=== PATIENT | female | born 1980 | race African-American/Black ===

== ENCOUNTER 2023-07-31 08:57 | Emergency (ER) | payer OTHER ==
[~2023-07-31] VITALS: Ht 165.1 cm; Wt 127.0 kg
[2023-07-31 09:12] VITALS: BP 171/97; RESP 16; TEMP 98.3; O2SAT 98
[2023-07-31 09:15] VITALS: PULSE 89
== END 2023-07-31 11:18 | disposition home or self-care (01) ==
LOC: ER 08:57
DX: B34.9 Viral infection, unspecified (principal); I10 Essential (primary) hypertension; Z86.59 Personal history of other mental and behavioral disorders
CPT/HCPCS: 71045; 99283

== ENCOUNTER 2024-10-17 17:53 | Emergency (ER) | payer OTHER ==
[~2024-10-17] VITALS: Ht 165.1 cm; Wt 137.0 kg
[2024-10-17 17:58] VITALS: TEMP 36.7; O2SAT 100
[2024-10-17 19:10] VITALS: BP 165/86; PULSE 83; RESP 14
[2024-10-17] MEDS: BACITRACIN ZINC OINT UDPKT TOP ONE (19:10)
[2024-10-17] MEDS: KETOROLAC 30MG/ML VIAL IV ONE (19:10)
[2024-10-17] MEDS: LIDOCAINE HCL/PF 1% 10 MG/ML 5ML VIAL INFIL ONE (19:10)
== END 2024-10-17 20:19 | disposition home or self-care (01) ==
LOC: ER 17:53
DX: S01.312A Laceration without foreign body of left ear, initial encounter (principal); G43.809 Other migraine, not intractable, without status migrainosus; X58.XXXA Exposure to other specified factors, initial encounter; Y93.89 Activity, other specified; Y92.89 Other specified places as the place of occurrence of the external cause; Y99.8 Other external cause status
CPT/HCPCS: 12011; 96374; 99283; J1885; J2003; Z7610 ×2

== ENCOUNTER 2024-10-23 15:19 | Emergency (ER) | payer OTHER ==
[~2024-10-23] VITALS: Ht 165.1 cm; Wt 136.1 kg
[2024-10-23 15:21] VITALS: BP 155/64; PULSE 105; RESP 18; TEMP 36.8; O2SAT 99
[2024-10-23] MEDS ORDERED: BO1 TP (16:53)
== END 2024-10-23 16:58 | disposition home or self-care (01) ==
LOC: ER 15:31
DX: S01.312D Laceration without foreign body of left ear, subsequent encounter (principal); G43.909 Migraine, unspecified, not intractable, without status migrainosus; X58.XXXD Exposure to other specified factors, subsequent encounter
CPT/HCPCS: 99282